=== PATIENT | male | born 1990 | race Caucasian/White ===

== ENCOUNTER 2019-04-02 13:51 | Emergency (ER) | payer OTHER ==
[2019-04-02] MEDS ORDERED: Fluorescein Sodium TOPICAL* 1 MG TEST STRIP OPHTHALMIC ONE (14:29)
[2019-04-02] MEDS ORDERED: Tetracaine 0.5% OPTH.SOL 4 ML* 1 DROP BTL LEFT EYE ONE (14:29)
--- NOTE | 2019-04-02 14:30 | UC ---
Eye Complaint HPI - HPI Summary HPI Summary: 28-year-old male who was grinding with metal yesterday when he thinks he got a piece of metal in his left eye. He denies any visual changes. - History of Current Complaint Chief Complaint: UCEye Stated Complaint: LT EYE COMPLAINT Time Seen by Provider: 04/02/19 14:24 Hx Obtained From: Patient Onset/Duration: Sudden Onset, Other - Happened yesterday Timing: Constant Severity Initially: Mild Severity Currently: Mild Pain Intensity: 3 Location of Injury: Globe, Other - Small speck of possible metal in the left cornea. Character: Foreign Body Sensation Aggravating Factor(s): Blinking Alleviating Factor(s): Nothing Associated Signs And Symptoms: Positive: Negative - Allergies/Home Medications Allergies/Adverse Reactions: Allergies Allergy/AdvReac Type Severity Reaction Status Date / Time No Known Allergies Allergy Verified 04/02/19 14:08 PMH/Surg Hx/FS Hx/Imm Hx Previously Healthy: Yes - Surgical History Surgical History: Yes Surgery Procedure, Year, and Place: Left wrist surgery - Family History Known Family History: Positive: Non-Contributory - Social History Alcohol Use: Occasionally Substance Use Type: Marijuana Substance Use Comment - Amount & Last Used: daily Smoking Status (MU): Heavy Every Day Tobacco Smoker Type: Cigarettes Amount Used/How Often: 1 PPD Review of Systems All Other Systems Reviewed And Are Negative: Yes Eyes: Positive: Other - Left eye is watery. Patient has a sensation of foreign body in his left eye. Is Patient Immunocompromised?: No Physical Exam Triage Information Reviewed: Yes Appearance: Well-Appearing, No Pain Distress, Well-Nourished Vital Signs: Initial Vital Signs Temp 98.2 F 04/02/19 14:08 Pulse 105 04/02/19 14:08 Resp 20 04/02/19 14:08 BP 136/81 04/02/19 14:08 Pulse Ox 99 04/02/19 14:08 Vital Signs Reviewed: Yes Eyes: Positive: Conjunctiva Clear, Other: - There is a very small speck in his left eye at approximately the 1 o'clock position. Neurological: Positive: Alert Psychological Exam: Normal Eye Complaint Course/Dx - Course Course Of Treatment: After instillation of tetracaine drops the foreign body was visualized I tried to remove it unsuccessfully with a Q-tip. I applied fluorescein to the eye and no corneal abrasion is noted using the Wood's lamp. After consultation with Doctor Mckinnon, Doctor Mckinnon was able to remove the foreign body with an 18-gauge needle. There is no visible rust ring. The patient tolerated the procedure well. He was given erythromycin ophthalmic ointment to apply 3 times a day for 5 days. He's follow-up with an general foundry worker if any further concerns. - Differential Dx/Diagnosis Provider Diagnosis: Foreign body of left cornea Discharge - Sign-Out/Discharge Documenting (check all that apply): Patient Departure All imaging exams completed and their final reports reviewed: No Studies - Discharge Plan Condition: Fair Disposition: HOME Prescriptions: Erythromycin OPTH OINT* [Erythromycin 0.5% OPTH OINT*] 1 applic LEFT EYE TID 5 Days #1 tube Patient Education Materials: Eye Foreign Body (ED) Referrals: Rajan Peralta MD [Medical Doctor] - No Primary Care Phys,NOPCP [Primary Care Provider] - Additional Instructions: Do not rub your eye. Follow-up with the general foundry worker if you have any further concerns over the next 2-3 days. - Billing Disposition and Condition Condition: FAIR Disposition: Home
== END 2019-04-02 15:04 | disposition home or self-care (01) ==
LOC: UCCORT 13:51
DX: T15.02XA Foreign body in cornea, left eye, initial encounter (principal); S00.252A Superficial foreign body of left eyelid and periocular area, initial encounter; X58.XXXA Exposure to other specified factors, initial encounter; Y93.89 Activity, other specified; Y92.9 Unspecified place or not applicable
CPT/HCPCS: 65220; 99202; A9270-GY; G0463